=== PATIENT | female | born 1965 | race Caucasian/White ===

== ENCOUNTER 2017-10-20 09:46 | Emergency (ER) | payer OTHER ==
[2017-10-20] MEDS ORDERED: METOCLOPRAMIDE 10 MG/2mL INJ ONE (10:24)
[2017-10-20] MEDS ORDERED: NA CHLORIDE 0.9% 1,000 ML ONE (10:25)
[2017-10-20] MEDS ORDERED: KETOROLAC 30 MG/ML INJ ONE (10:25)
--- NOTE | 2017-10-20 11:08 | RAD REPORT ---
EXAM DESCRIPTION: Adan Sexton (2 Views)10/20/2017 10:37 am CLINICAL HISTORY: Cough COMPARISON: None FINDINGS: The lungs appear clear of acute infiltrate. The heart is normal size IMPRESSION: No acute abnormalities displayed
--- NOTE | 2017-10-20 11:58 | EDPHYS ---
Physician Documentation [facility] Name: Lillian Thurman Age: 52 yrs Sex: Female : 1965 Arrival Date: 10/20/2017 Time: 09:50 Bed 16 Private MD: Durga Jerome ED Physician Marco Antonio Garcia HPI: 10/20 10:25 This 52 yrs old Female presents to ER via Ambulatory with complaints of kb Fever, Headache, Cough. 10:25 The patient or guardian reports cough, that is intermittent, described as moderate, kb with no sputum. Onset: The symptoms/episode began/occurred last night. Severity of symptoms: At their worst the symptoms were moderate, in the emergency department the symptoms are unchanged. Modifying factors: The symptoms are alleviated by nothing, the symptoms are aggravated by nothing. Associated signs and symptoms: Pertinent positives: fever, nausea, vomiting, Pertinent negatives: chest pain, diarrhea, ear ache, rhinorrhea, sore throat. The patient has not experienced similar symptoms in the past. The patient has not recently seen a physician. Pt reports migraine for a couple of days. Last night started coughing and running low grade fever (100.4).. Historical: - Allergies: 09:56 unknown ear drops; la1 - PMHx: 09:56 eczema; la1 - Immunization history:: Adult Immunizations up to date. - Social history:: Smoking status: Patient/guardian denies using tobacco. ROS: 10:08 ENT: Negative for injury, pain, and discharge, Neck: Negative for injury, pain, and kb swelling, Cardiovascular: Negative for chest pain, palpitations, and edema, Back: Negative for injury and pain, : Negative for injury, bleeding, discharge, and swelling, MS/Extremity: Negative for injury and deformity, Skin: Negative for injury, rash, and discoloration. 10:08 Constitutional: Positive for fever, Negative for body aches, chills, fatigue, malaise, poor PO intake, weight loss. 10:08 Respiratory: Positive for cough, Negative for dyspnea on exertion, hemoptysis, orthopnea, pleurisy, shortness of breath, sputum production, wheezing. 10:08 Abdomen/GI: Positive for nausea and vomiting, Negative for abdominal pain, diarrhea, constipation, abdominal cramps, abdominal distension, anorexia. 10:08 Neuro: Positive for headache, Negative for altered mental status, dizziness, gait disturbance, hearing loss, loss of consciousness, numbness, seizure activity, speech changes, syncope, near syncope, tingling, tinnitus, tremor, visual changes, weakness. Exam: 10:08 Constitutional: This is a well developed, well nourished patient who is awake, alert, kb and in no acute distress. Head/Face: Normocephalic, atraumatic. ENT: Nares patent. No nasal discharge, no septal abnormalities noted. Tympanic membranes are normal and external auditory canals are clear. Oropharynx with no redness, swelling, or masses, exudates, or evidence of obstruction, uvula midline. Mucous membranes moist. Neck: Trachea midline, no thyromegaly or masses palpated, and no cervical lymphadenopathy. Supple, full range of motion without nuchal rigidity, or vertebral point tenderness. No Meningismus. Chest/axilla: Normal chest wall appearance and motion. Nontender with no deformity. No lesions are appreciated. Cardiovascular: Regular rate and rhythm with a normal S1 and S2. No gallops, murmurs, or rubs. Normal PMI, no JVD. No pulse deficits. Respiratory: Lungs have equal breath sounds bilaterally, clear to auscultation and percussion. No rales, rhonchi or wheezes noted. No increased work of breathing, no retractions or nasal flaring. Abdomen/GI: Soft, non-tender, with normal bowel sounds. No distension or tympany. No guarding or rebound. No evidence of tenderness throughout. Skin: Warm, dry with normal turgor. Normal color with no rashes, no lesions, and no evidence of cellulitis. MS/ Extremity: Pulses equal, no cyanosis. Neurovascular intact. Full, normal range of motion. Neuro: Awake and alert, GCS 15, oriented to person, place, time, and situation. Cranial nerves II-XII grossly intact. Motor strength 5/5 in all extremities. Sensory grossly intact. Cerebellar exam normal. Normal gait. Vital Signs: 09:56 BP 131 / 71; Pulse 111; Resp 20; Temp 98.8(TE); Pulse Ox 96% on R/A; Weight 81.65 kg; la1 Height 5 ft. 2 in. (157.48 cm); 11:05 BP 118 / 76; Pulse 98; Resp 16; Pulse Ox 98% on R/A; mh5 11:53 BP 115 / 74; Pulse 94; Resp 14; Pulse Ox 96% ; mh5 12:17 Temp 98.1(O); ph 09:56 Body Mass Index 32.92 (81.65 kg, 157.48 cm) la1 MDM: 09:54 Patient medically screened. kb 10:08 Data reviewed: vital signs, nurses notes. Data interpreted: Pulse oximetry: on room air kb is 96 %. Interpretation: normal. 11:55 Counseling: I had a detailed discussion with the patient and/or guardian regarding: the kb historical points, exam findings, and any diagnostic results supporting the discharge/admit diagnosis, radiology results, the need for outpatient follow up, a family practitioner, to return to the emergency department if symptoms worsen or persist or if there are any questions or concerns that arise at home. Response to treatment: the patient's symptoms have resolved after treatment, the patient's pain is gone. 10/20 09:58 Order name: Chest Pa And Lat (2 Views) XRAY kb 10/20 11:08 Order name: RAD; Complete Time: 11:09 EDMS 10/20 09:58 Order name: IV Start; Complete Time: 10:19 kb Administered Medications: 10:18 Drug: NS 0.9% 1000 ml Route: IV; Rate: 1000 ml; Site: left antecubital; ph 12:16 Follow up: Response: No adverse reaction; IV Status: Completed infusion; IV Intake: ph 1000ml 10:19 Drug: Reglan 10 mg Route: IVP; Site: left antecubital; ph 12:16 Follow up: Response: No adverse reaction; Pain is decreased ph 10:19 Drug: TORadol 30 mg Route: IVP; Site: left antecubital; ph 12:16 Follow up: Response: No adverse reaction; Pain is decreased ph Disposition: 17:48 Co-signature as Attending Physician, Marco Antonio Garcia MD. rn Disposition: 10/20/17 11:57 Discharged to Home. Impression: Migraine, Cough. - Condition is Stable. - Discharge Instructions: Migraine Headache, Rnky-[id number], Cough, Adult, [id number]-[id number]. - Medication Reconciliation Form, Thank You Letter, Antibiotic Education, Prescription Opioid Use, Work release form form. - Follow up: Emergency Department; When: As needed; Reason: Worsening of condition. Follow up: Durga Jerome MD; When: 2 - 3 days; Reason: Recheck today's complaints, Continuance of care, Re-evaluation by your physician. - Notes: Take Delsym OTC as directed for cough Signatures: Dispatcher [employer] Arabella Pruitt, GERONIMO-C CERNER ANALYST-Marco Antonio Campa MD MD rn Attema, Lee, RN RN laSherry Valdez RN RN ph
--- NOTE | 2017-10-20 11:58 | ER ---
Nurse's Notes [facility] Name: Lillian Thurman Age: 52 yrs Sex: Female : 1965 Arrival Date: 10/20/2017 Time: 09:50 Bed 16 Private MD: Durga Jerome Diagnosis: Migraine;Cough Presentation: 10/20 09:55 Presenting complaint: Patient states: migraines on and off for a few days, cough since la1 yesterday at noon. Transition of care: patient was not received from another setting of care. Onset of symptoms was October 20, 2017. Care prior to arrival: None. 09:55 Method Of Arrival: Ambulatory la1 09:55 Acuity: MAGGIE 3 la1 Historical: - Allergies: 09:56 unknown ear drops; la1 - PMHx: 09:56 eczema; la1 - Immunization history:: Adult Immunizations up to date. - Social history:: Smoking status: Patient/guardian denies using tobacco. Screenin:25 Abuse screen: Denies threats or abuse. Denies injuries from another. Nutritional ph screening: No deficits noted. Tuberculosis screening: No symptoms or risk factors identified. Fall Risk None identified. Assessment: 10:19 General: Appears in no apparent distress. uncomfortable, well groomed, Behavior is ph calm, cooperative, appropriate for age, Reports fever for 12-24 hours. Pain: Complains of pain in back and chest Aggravated by coughing. Neuro: Level of Consciousness is awake, alert, obeys commands, Oriented to person, place, time, situation, Moves all extremities. Full function Gait is steady, Speech is normal, Facial symmetry appears normal, Pupils are PERRLA, Reports headache frontal area, Denies weakness blurred vision dizziness. Cardiovascular: Capillary refill < 3 seconds in bilateral fingers Patient's skin is warm and dry. Respiratory: Reports cough that is non-productive, dry, persistent pain with cough Airway is patent Respiratory effort is even, unlabored, Respiratory pattern is regular, symmetrical, Breath sounds are clear bilaterally. Denies shortness of breath. GI: Reports 1 episode of vomiting, states, " I think it was because I was coughing so much", denies abdominal pain or nausea at this time. Derm: Skin is intact, is healthy with good turgor, Skin is pink, warm \\T\\ dry. Musculoskeletal: Circulation, motion, and sensation intact. Range of motion: intact in all extremities. 11:09 Reassessment: Patient appears in no apparent distress at this time. Patient and/or ph family updated on plan of care and expected duration. Pain level reassessed. Patient is alert, oriented x 3, equal unlabored respirations, skin warm/dry/pink. Pt reports that pain has improved to 4/10, awaiting CXR results, VSS. Vital Signs: 09:56 BP 131 / 71; Pulse 111; Resp 20; Temp 98.8(TE); Pulse Ox 96% on R/A; Weight 81.65 kg; la1 Height 5 ft. 2 in. (157.48 cm); 11:05 BP 118 / 76; Pulse 98; Resp 16; Pulse Ox 98% on R/A; mh5 11:53 BP 115 / 74; Pulse 94; Resp 14; Pulse Ox 96% ; mh5 12:17 Temp 98.1(O); ph 09:56 Body Mass Index 32.92 (81.65 kg, 157.48 cm) la1 ED Course: 09:50 Patient arrived in ED. as 09:51 Durga Jerome MD is Private Physician. as 09:53 Arabella Stroud FNP-C [facility]. kb 09:53 Marco Antonio Garcia MD is Attending Physician. kb 09:56 Triage completed. la1 09:56 Sherry Ashton, RN is Primary Nurse. ph 09:57 Arm band placed on left wrist. la1 10:15 Inserted saline lock: 22 gauge in right antecubital area, using aseptic technique. ph 10:25 Patient has correct armband on for positive identification. Bed in low position. Call ph light in reach. Side rails up X 1. Pulse ox on. NIBP on. Warm blanket given. 10:33 X-ray completed. Patient tolerated procedure well. Patient moved back from radiology. mh1 11:57 Durga Jerome MD is Referral Physician. kb 12:17 No provider procedures requiring assistance completed. IV discontinued, intact, ph bleeding controlled, No redness/swelling at site. Pressure dressing applied. Administered Medications: 10:18 Drug: NS 0.9% 1000 ml Route: IV; Rate: 1000 ml; Site: left antecubital; ph 12:16 Follow up: Response: No adverse reaction; IV Status: Completed infusion; IV Intake: ph 1000ml 10:19 Drug: Reglan 10 mg Route: IVP; Site: left antecubital; ph 12:16 Follow up: Response: No adverse reaction; Pain is decreased ph 10:19 Drug: TORadol 30 mg Route: IVP; Site: left antecubital; ph 12:16 Follow up: Response: No adverse reaction; Pain is decreased ph Intake: 12:16 IV: 1000ml; Total: 1000ml. ph Outcome: 11:57 Discharge ordered by MD. de dios 12:18 Discharged to home ambulatory. ph 12:18 Condition: improved 12:18 Discharge instructions given to patient, Instructed on discharge instructions, follow up and referral plans. Demonstrated understanding of instructions, follow-up care. 12:18 Patient left the ED. ph Signatures: Arbaella Stroud, AIDS NURSE-C AIDS NURSE-CkGloria Judge 1 Janet Pryor Lee, RN RN [facility] Sherry Ashton RN RN Rosalia Pryor [facility]
[2017-10-20 12:24] VITALS: BP 115/74; O2SAT 96
[2017-10-20 12:25] VITALS: TEMP 98.1
== END 2017-10-20 12:18 | disposition home or self-care (01) ==
LOC: ER 09:46
DX: G43.909 Migraine, unspecified, not intractable, without status migrainosus (principal)
CPT/HCPCS: 71046; 96361; 96374; 96375; 99284; J2765; J7030

== ENCOUNTER 2018-08-23 11:45 | Emergency (ER) | payer OTHER ==
--- NOTE | 2018-08-23 14:06 | ER ---
Nurse's Notes [facility] Name: Lillian Thurman Age: 53 yrs Sex: Female : 1965 Arrival Date: 08/23/2018 Time: 11:49 Bed 24 Private MD: Durga Jerome Diagnosis: contusions, hematomas;Other slipping, tripping and stumbling and falls Presentation: 08/23 12:28 Presenting complaint: Patient states: at 730 this morning, i didn't know it was icy, i tw2 ran out the front door and threw a shoe at my down and fell down 4 stairs, i fell on my left side hip and arm, my hip is very tender and my arm my neck is getting stiff and my lower back. Transition of care: patient was not received from another setting of care. Onset of symptoms was August 23, 2018. Risk Assessment: Do you want to hurt yourself or someone else? Patient reports no desire to harm self or others. Initial Sepsis Screen: Does the patient meet any 2 criteria? No. Patient's initial sepsis screen is negative. Does the patient have a suspected source of infection? No. Patient's initial sepsis screen is negative. Care prior to arrival: None. 12:28 Method Of Arrival: Ambulatory tw2 12:28 Acuity: MAGGIE 4 tw2 Triage Assessment: 12:32 General: Appears in no apparent distress. well groomed, Behavior is calm, cooperative, tw2 appropriate for age. Pain: Complains of pain in left hip and left arm. 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 - Social history:: Smoking status: Patient uses tobacco products, "between 5-10", Patient uses alcohol, "3 days a week". - Ebola Screening: : Patient denies travel to an Ebola-affected area in the 21 days before illness onset. Screenin:51 Abuse screen: Denies threats or abuse. Denies injuries from another. Nutritional dm5 screening: No deficits noted. Tuberculosis screening: No symptoms or risk factors identified. Fall Risk Fall in past 12 months (25 points). No secondary diagnosis (0 pts). No IV (0 pts). Ambulatory Aid- None/Bed Rest/Nurse Assist (0 pts). Gait- Normal/Bed Rest/Wheelchair (0 pts) Mental Status- Oriented to own ability (0 pts). Total Castro Fall Scale indicates Low Risk Score (25-44 pts). Fall prevention measures have been instituted. Side Rails Up X 2 Placed close to Nursing Station Frequent Obs/Assesments occuring. Assessment: 12:51 General: Appears in no apparent distress. Behavior is calm, cooperative. Pain: dm5 Complains of pain in left tricep, left elbow, palmar aspect of left forearm and left hip. Neuro: Level of Consciousness is awake, alert, obeys commands, Oriented to person, place, time, situation. Cardiovascular: No deficits noted. Respiratory: Airway is patent Respiratory effort is even, unlabored, relaxed, Respiratory pattern is regular, symmetrical. Derm: Bruising that is dark purple. Injury Description: slip and fall on stairs, bruising noted to inside of left elbow and reported on left hip. 13:46 Reassessment: Patient and/or family updated on plan of care and expected duration. Pain tl3 level reassessed. Patient is alert, oriented x 3, equal unlabored respirations, skin warm/dry/pink. Dr Mendosa at bedside for assessment. 14:18 Reassessment: No changes from previously documented assessment. Patient and/or family tl3 updated on plan of care and expected duration. Pain level reassessed. Patient is alert, oriented x 3, equal unlabored respirations, skin warm/dry/pink. Vital Signs: 12:29 BP 138 / 87; Pulse 98; Resp 18; Temp 98.8(O); Pulse Ox 100% on R/A; Weight 80.74 kg tw2 (R); Height 5 ft. 2 in. (157.48 cm); Pain 5/10; 13:46 BP 132 / 77; Pulse 88; Resp 18; Pulse Ox 100% on R/A; tl3 12:29 Body Mass Index 32.56 (80.74 kg, 157.48 cm) tw2 ED Course: 11:49 Patient arrived in ED. mr 11:49 Durga Jerome MD is Private Physician. mr 12:29 Triage completed. tw2 12:30 Arm band placed on. tw2 13:05 Jason Mendosa MD is Attending Physician. kdr 13:19 Jud Florez, RN is Primary Nurse. tl3 13:46 Patient has correct armband on for positive identification. Bed in low position. Call tl3 light in reach. Pulse ox on. NIBP on. 13:46 No provider procedures requiring assistance completed. Patient did not have IV access tl3 during this emergency room visit. 14:04 Durga Jerome MD is Referral Physician. kdr Administered Medications: No medications were administered Outcome: 14:05 Discharge ordered by . kdr 14:18 Discharged to home ambulatory. tl3 14:18 Condition: stable 14:18 Discharge instructions given to patient, Instructed on discharge instructions, follow up and referral plans. medication usage, Demonstrated understanding of instructions, follow-up care, medications, Prescriptions given X 2. 14:20 Patient left the ED. tl3 Signatures: Tayler Loco, RN RN dm5 Jason Mendosa MD MD [facility] Mine Mahoney mr Vicky Blanchard RN RN tw2 Jud Florez, LINDEN RN tl3
--- NOTE | 2018-08-23 14:06 | EDPHYS ---
Physician Documentation [facility] Name: Lillian Thurman Age: 53 yrs Sex: Female : 1965 Arrival Date: 08/23/2018 Time: 11:49 Bed 24 Private MD: Durga Jerome ED Physician Jason Mendosa HPI: 08/23 18:04 This 53 yrs old Female presents to ER via Ambulatory with complaints of Fall kdr Injury. 18:04 Details of fall: The patient fell from an upright position, while walking. Onset: The kdr symptoms/episode began/occurred acutely, suddenly, this morning. Associated injuries: The patient sustained Left upper extremity . Severity of symptoms: At their worst the symptoms were mild, moderate, just prior to arrival, in the emergency department the symptoms are actually worse, mildly. The patient has not experienced similar symptoms in the past. The patient has not recently seen a physician. As noted in the nursing notes, she slipped on steps while throughing her shoe at her dog. 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 - Social history:: Smoking status: Patient uses tobacco products, "between 5-10", Patient uses alcohol, "3 days a week". - Ebola Screening: : Patient denies travel to an Ebola-affected area in the 21 days before illness onset. ROS: 18:04 Constitutional: Negative for fever, chills, and weight loss, Eyes: Negative for injury, kdr pain, redness, and discharge, ENT: Negative for injury, pain, and discharge, Neck: Negative for injury, pain, and swelling, Cardiovascular: Negative for chest pain, palpitations, and edema, Respiratory: Negative for shortness of breath, cough, wheezing, and pleuritic chest pain, Abdomen/GI: Negative for abdominal pain, nausea, vomiting, diarrhea, and constipation, : Negative for injury, bleeding, discharge, and swelling, Skin: Negative for injury, rash, and discoloration, Neuro: Negative for headache, weakness, numbness, tingling, and seizure activity. Psych: Negative for depression, anxiety, suicide ideation, homicidal ideation, and hallucinations, Allergy/Immunology: Negative for hives, rash, and allergies, Endocrine: Negative for neck swelling, polydipsia, polyuria, polyphagia, and marked weight changes, Hematologic/Lymphatic: Negative for swollen nodes, abnormal bleeding, and unusual bruising. 18:04 Back: Positive for pain with movement. 18:04 MS/extremity: Positive for ecchymosis. 18:04 Neuro: Negative for altered mental status, dizziness, gait disturbance, headache, hearing loss, loss of consciousness, numbness, seizure activity. Exam: 18:04 Constitutional: This is a well developed, well nourished patient who is awake, alert, kdr and in no acute distress. Head/Face: Normocephalic, atraumatic. Eyes: Pupils equal round and reactive to light, extra-ocular motions intact. Lids and lashes normal. Conjunctiva and sclera are non-icteric and not injected. Cornea within normal limits. Periorbital areas with no swelling, redness, or edema. Neck: Trachea midline, no thyromegaly or masses palpated, and no cervical lymphadenopathy. Supple, full range of motion without nuchal rigidity, or vertebral point tenderness. No Meningismus. Chest/axilla: Normal chest wall appearance and motion. Nontender with no deformity. No lesions are appreciated. Cardiovascular: Regular rate and rhythm with a normal S1 and S2. No gallops, murmurs, or rubs. Normal PMI, no JVD. No pulse deficits. Respiratory: Lungs have equal breath sounds bilaterally, clear to auscultation and percussion. No rales, rhonchi or wheezes noted. No increased work of breathing, no retractions or nasal flaring. Abdomen/GI: Soft, non-tender, with normal bowel sounds. No distension or tympany. No guarding or rebound. No evidence of tenderness throughout. Back: No spinal tenderness. No costovertebral tenderness. Full range of motion. Skin: Warm, dry with normal turgor. Normal color with no rashes, no lesions, and no evidence of cellulitis. Neuro: Awake and alert, GCS 15, oriented to person, place, time, and situation. Cranial nerves II-XII grossly intact. Motor strength 5/5 in all extremities. Sensory grossly intact. Cerebellar exam normal. Normal gait. Psych: Awake, alert, with orientation to person, place and time. Behavior, mood, and affect are within normal limits. 18:04 Musculoskeletal/extremity: Extremities: grossly normal except: noted in the left tricep, left elbow, left wrist and palmar aspect of left forearm: noted in the left gluteal fold, left hamstring, posterior aspect of left knee and left calf: Vital Signs: 12:29 BP 138 / 87; Pulse 98; Resp 18; Temp 98.8(O); Pulse Ox 100% on R/A; Weight 80.74 kg tw2 (R); Height 5 ft. 2 in. (157.48 cm); Pain 5/10; 13:46 BP 132 / 77; Pulse 88; Resp 18; Pulse Ox 100% on R/A; tl3 12:29 Body Mass Index 32.56 (80.74 kg, 157.48 cm) tw2 MDM: 14:05 Patient medically screened. kdr 18:08 Data reviewed: vital signs, nurses notes. Counseling: I had a detailed discussion with kdr the patient and/or guardian regarding: the historical points, exam findings, and any diagnostic results supporting the discharge/admit diagnosis, the need for outpatient follow up. Administered Medications: No medications were administered Disposition: 08/23/18 14:05 Discharged to Home. Impression: contusions, hematomas, Other slipping, tripping and stumbling and falls. - Condition is Stable. - Discharge Instructions: Muscle Pain, Adult, Contusion, [id number], Muscle Strain, [id number]. - Prescriptions for Cyclobenzaprine 10 mg Oral Tablet - take 1 tablet by ORAL route every 8 hours As needed; 15 tablet. Tramadol 50 mg Oral Tablet - take 1 tablet by ORAL route every 8 hours As needed as needed; 15 tablet. - Medication Reconciliation Form, Thank You Letter, Prescription Opioid Use form. - Follow up: Durga Jerome MD; When: 2 - 3 days; Reason: If symptoms return, Further diagnostic work-up, Recheck today's complaints, Continuance of care, Re-evaluation by your physician. - Problem is new. - Symptoms have improved. Signatures: Jason Mendosa MD MD kdr Vicky Blanchard RN RN tw2 Jud Florez, LINDEN RN tl3 Corrections: (The following items were deleted from the chart) 14:20 14:05 08/23/2018 14:05 Discharged to Home. Impression: contusions, hematomas; Other tl3 slipping, tripping and stumbling and falls. Condition is Stable. Forms are Medication Reconciliation Form, Thank You Letter, Antibiotic Education, Prescription Opioid Use. Follow up: Durga Jerome; When: 2 - 3 days; Reason: If symptoms return, Further diagnostic work-up, Recheck today's complaints, Continuance of care, Re-evaluation by your physician. Problem is new. Symptoms have improved. kdr
[2018-08-23 14:47] VITALS: TEMP 98.8; O2SAT 100
[2018-08-23 14:49] VITALS: BP 132/77
== END 2018-08-23 14:20 | disposition home or self-care (01) ==
LOC: ER 11:45
DX: S70.12XA Contusion of left thigh, initial encounter (principal); W10.9XXA Fall (on) (from) unspecified stairs and steps, initial encounter; Z88.5 Allergy status to narcotic agent
CPT/HCPCS: 99283